=== PATIENT | male | born 1975 | race Two or more races ===

== ENCOUNTER 2017-01-21 08:44 | Emergency (ER) | payer OTHER | END 2017-01-21 10:25 | disposition home or self-care (01) | LOC: CFTX 08:44 → CED 08:44 → CFTX 10:17 | DX: J06.9 Acute upper respiratory infection, unspecified (principal); H65.92 Unspecified nonsuppurative otitis media, left ear; Z90.49 Acquired absence of other specified parts of digestive tract | CPT/HCPCS: 99282 ==

== ENCOUNTER 2017-03-11 21:57 | Emergency (ER) | payer OTHER ==
[~2017-03-11] VITALS: Ht 177.8 cm; Wt 113.4 kg
--- NOTE | ~2017-03-11 | CR108 ---
[facility]. [facility] A Service of [facility] & [facility] / [facility] RADIOLOGY TEXT RESULTS PATIENT: LUISA RESENDEZ LOCATION: SED : 73 UNIT #: [id number] AGE: [address]: ALEX WRIGHT SEX: M ORDER DR: [id number] [place] [id number] E MR#: [id number] Acc #: [id number] NAME: LUISA RESENDEZ : 1975 SEX: M STUDY DATE/TIME: 03/11/2017 23:38 UNIT: SED ROOM: STUDY DESCRIPTION: CR Finger 2 View 2nd Lt Attending Physician: Alex Wright Ordering Physician: Alex Wright Primary Care Physician: Jose Kwan M.D. MEDICAL IMAGING REPORT This report is preliminary unless electronic signature is present. EXAM Left index finger, 03/11 at 23:38 INDICATION Laceration with pain in the index finger after cutting finger on a metal solderer today. FINDINGS Three views of the left second digit were obtained. No fracture or malalignment is seen. There is some soft tissue injury, but there are no radiopaque foreign bodies. IMPRESSION No fracture or radiopaque foreign body identified. Soft tissue injury is noted. Dictated by... Alton Caballero Jr., M.D. THIS IS AN ELECTRONICALLY VERIFIED REPORT Alton Caballero Jr., M.D. at 03/12/2017 8:50 PM CLEO/brian TD: 03/12/2017 11:18 JOB #: [id number] MEDICAL IMAGING REPORT Page 1 of 1
== END 2017-03-12 01:35 | disposition home or self-care (01) ==
LOC: SED 21:57
DX: S61.211A Laceration without foreign body of left index finger without damage to nail, initial encounter (principal); Z23 Encounter for immunization; W45.8XXA Other foreign body or object entering through skin, initial encounter; Y92.009 Unspecified place in unspecified non-institutional (private) residence as the place of occurrence of the external cause
CPT/HCPCS: 12001; 73140; 90471; 90715; 99283